=== PATIENT | male | born 1980 | race Hispanic/Latino ===

== ENCOUNTER → 2023-07-03 | Emergency (ER) | payer SELFPAY ==
[~2023-07-03] MED LIST: Magnesium Sulfate 2gm IVPB 2 G/50 ML BAG IV ONE; POTASSIUM CL SA 10 MEQ TAB PO ONE
[2023-07-03 12:13] LABS: Absolute Basophils 0.1 K/uL (0-0.5); Absolute Lymphocytes (CBC) 3.2 K/uL (0.7-4.9); Absolute Monocytes 0.6 K/uL (0.1-1.3); Absolute Neutrophil 10.6 K/uL (1.8-8.0); Basophils % 0.7 % (0-1.3); Eosinophils % 0.2 % (0-4.4); Hematocrit 40.5 % (39.6-49.0); Hemoglobin 13.9 g/dL (13.6-17.9); Lymphocytes % 22.1 % (15.3-44.8); MCH 30.8 pg (27.0-35.0); MCHC 34.4 g/dL (32.0-36.0); MCV 89.6 fL (80-100); MPV 7.5 fL (7.6-11.3); Monocytes % 4.3 % (3.3-12.3); Neutrophils % 72.7 % (41.7-73.7); Nucleated Red Blood Cells % 0.1 % (0-0); Platelets 256 thou/uL (152-406); RBC Red Blood Cell Count 4.52 M/uL (4.33-5.43)
--- NOTE | 2023-07-03 12:30 | RAD REPORT ---
EXAM DESCRIPTION: CT - C Spine Wo Con - 07/03/2023 12:11 pm CLINICAL HISTORY: Radiculopathy COMPARISON: None TECHNIQUE: Computed axial tomography of the cervical spine were obtained with sagittal and coronal r econstruction images generated and reviewed. All CT scans are performed using dose optimization technique as appropriate and may include automated exposure control or mA/KV adjustment according to patient size. FINDINGS: A cervical fracture is not seen. No dislocation. Small right posterior-lateral disc osteophyte complex C3-4 results in mild narrowing of the right brandy ral foramina Spondylosis C4-5 results in mild narrowing left neural foramina Posterior disc osteophyte complex at C5-6 results in mild narrowing of thecal sac and mild to moderat e narrowing of the right and mild narrowing of the left neural foramina Right paracentral disc osteophyte complex C6-7 results in mild narrowing of thecal sac Facet hypertrophy and disc bulge C7-T1 resulting in mild to moderate narrowing the right neural helder tracy Mild central spinal stenosis mid and distal cervical spine Large bilateral thyroid nodules. 3.3 centimeter soft tissue structure abuts the inferior aspect of th e right lobe of the thyroid gland. This could represent a thyroid mass or lymphadenopathy IMPRESSION: A cervical fracture is not seen. Spondylosis and disc osteophyte complex as described above. MRI may be helpful for further evaluation Large bilateral thyroid nodules. 3.3 centimeter soft tissue structure abuts the inferior aspect of th e right lobe of the thyroid gland. Thyroid/neck ultrasound is recommended
--- NOTE | 2023-07-03 12:32 | RAD REPORT ---
EXAM DESCRIPTION: Amrit Single View07/03/2023 12:27 pm CLINICAL HISTORY: Hypertension/radiculopathy COMPARISON: none FINDINGS: The lungs appear clear of acute infiltrate. The heart is normal size IMPRESSION: No acute abnormalities displayed
[2023-07-03 12:33] LABS: Albumin 3.3 g/dL (3.4-5.0); Albumin/Globulin Ratio 0.8 (1.1-1.8); Anion Gap 10.5 mEq/L (5.0-15.0); Bilirubin Direct 0.3 mg/dL (0-0.2); Bilirubin Indirect, Calculated 0.6 mg/dL (0.2-0.8); Bilirubin Total 0.9 mg/dL (0.2-1.0); Globulin 3.9 g/dL (2.3-3.5); Magnesium 1.2 mg/dL (1.6-2.4); Protein, Total 7.2 g/dL (6.4-8.2); Troponin High Sensitivity 5.4 pg/mL (<58.9)
[2023-07-03 12:36] LABS: Potassium 2.5 mEq/L (3.5-5.1)
--- NOTE | 2023-07-03 13:39 | RAD REPORT ---
EXAM DESCRIPTION: US - Thyroid Para Parotid Gland - 07/03/2023 1:07 pm CLINICAL HISTORY: evaluate nodules Neck pain and swelling COMPARISON: C Spine Wo Con dated 07/03/2023 FINDINGS: The right lobe of the thyroid measures 5.3 x 3.7 x 2.9 cm. Circumscribed large nodule measuring 3.3 x 2.7 cm present. Adjacent more heterogenous nodule measuring 3.4 x 2.2 cm is present with solid and c ystic components. The left lobe of the thyroid measures 5.0 x 3.3 x 3.1 cm. Large heterogenous somewhat poorly defined nodule occupying the majority of the gland inferiorly measures at least 4.5 x 3.1 cm in size. Isthmus of the thyroid appears thickened up to 1 cm. IMPRESSION: Enlarged thyroid gland containing multiple large nodules as detailed. Multinodular goite r would be favored.
[2023-07-03 14:47] LABS: Specific Gravity 1.017 (1.005-1.030); Urine Bacteria <20 /HPF (<20); Urine Bilirubin NEGATIVE (Negative); Urine Blood 3+ (OVER) (Negative); Urine Clarity Extremely Turbid (Clear); Urine Color Yellow (Yellow); Urine Crystals Unidentified Few /HPF (None Seen); Urine Culture Reflex Order REFLEXED; Urine Glucose 1+ (Negative); Urine Ketones NEGATIVE (Negative); Urine Micro Reflex YN NO BILL MICROSCOPIC; Urine Mucus Slight /HPF (None Seen); Urine Nitrite NEGATIVE (Negative); Urine Protein 1+ (Negative); Urine RBC >50 /HPF (None Seen); Urine Urobilinogen Normal (Normal); Urine WBC 20-50 /HPF (<5); Urine pH 5.5 (5.0-7.0)
--- NOTE | 2023-07-03 15:05 | EDPHYS ---
Physician Documentation [facility] Name: Warner Dennis Age: 42 yrs Sex: Male : 1980 Arrival Date: 07/03/2023 Time: 11:51 Bed 4 Private MD: ED Physician Alana Albarran HPI: 07/02 12:17 This 42 yrs old Male presents to ER via EMS with complaints of left hand "asleep". sp3 12:18 42-year-old male with history of diabetes and hypertension and kidney stones currently sp3 on Flomax and pain medication due to current symptoms now presents to the ED with chief complaint left upper extremity "[id number]" without loss of motor function. He denies any injury or prior symptoms. He denies any chest pain, shortness of breath, neck pain, back pain, facial pain, nausea, vomiting, diarrhea, syncope, near syncope, rash, known sick contacts, travel history, or any other signs or symptoms on ROS at this time. He also denies prolonged immobilization, prior DVT or PE or any other family history of related illness.. Historical: - Allergies: 12:01 No Known Allergies; ko1 - Home Meds: 12:01 Flomax 0.4 mg Oral capsule [Active]; ko1 - PMHx: 12:01 Diabetes mellitus; Hypertensive disorder; ko1 - Immunization history:: Adult Immunizations unknown. - Social history:: Smoking status: Patient denies any tobacco usage or history of. ROS: 12:20 Constitutional: Negative for fever, chills, and weight loss, Eyes: Negative for injury, sp3 pain, redness, and discharge, ENT: Negative for injury, pain, and discharge, Neck: Negative for injury, pain, and swelling, Cardiovascular: Negative for chest pain, palpitations, and edema, Respiratory: Negative for shortness of breath, cough, wheezing, and pleuritic chest pain, Abdomen/GI: Negative for abdominal pain, nausea, vomiting, diarrhea, and constipation, Back: Negative for injury and pain, Skin: Negative for injury, rash, and discoloration, Psych: Negative for depression, anxiety, suicide ideation, homicidal ideation, and hallucinations, Allergy/Immunology: Negative for hives, rash, and allergies, Endocrine: Negative for neck swelling, polydipsia, polyuria, polyphagia, and marked weight changes, Hematologic/Lymphatic: Negative for swollen nodes, abnormal bleeding, and unusual bruising, 12:20 All other systems are negative, Exam: 12:20 Constitutional: This is a well developed, well nourished patient who is awake, alert, sp3 and in no acute distress. Head/Face: Normocephalic, atraumatic. Eyes: Pupils equal round and reactive to light, extra-ocular motions intact. Lids and lashes normal. Conjunctiva and sclera are non-icteric and not injected. Cornea within normal limits. Periorbital areas with no swelling, redness, or edema. ENT: Nares patent. No nasal discharge, no septal abnormalities noted. External auditory canals are clear. Oropharynx with no redness, swelling, or masses, exudates, or evidence of obstruction, uvula midline. Mucous membranes moist. Neck: Trachea midline, no thyromegaly or masses palpated, and no cervical lymphadenopathy. Supple, full range of motion without nuchal rigidity, or vertebral point tenderness. No Meningismus. Chest/axilla: Normal chest wall appearance and motion. Nontender with no deformity. No lesions are appreciated. Cardiovascular: Regular rate and rhythm with a normal S1 and S2. No gallops, murmurs, or rubs. Normal PMI, no JVD. No pulse deficits. Respiratory: Lungs have equal breath sounds bilaterally, clear to auscultation and percussion. No rales, rhonchi or wheezes noted. No increased work of breathing, no retractions or nasal flaring. Abdomen/GI: Soft, non-tender, with normal bowel sounds. No distension or tympany. No guarding or rebound. No evidence of tenderness throughout. Back: No spinal tenderness. No costovertebral tenderness. Full range of motion. Skin: Warm, dry with normal turgor. Normal color with no rashes, no lesions, and no evidence of cellulitis. Psych: Awake, alert, with orientation to person, place and time. Behavior, mood, and affect are within normal limits. 12:20 Neuro: Subjective [id number] and numbness noted however to point discrimination, motor function and vascular exam are all normal in the left upper extremity. Remainder of neurological exam is normal., 12:29 ECG was reviewed by the Attending Physician. EKG demonstrates normal sinus rhythm at 93 sp3 bpm with normal intervals, normal QRS, leftward axis and nonspecific ST's ST changes without evidence of acute ischemia. Vital Signs: 12:00 BP 134 / 91; Pulse 88; Resp 15; Temp 97; Pulse Ox 98% ; ko1 13:05 BP 151 / 89; Pulse 82; Resp 16; Pulse Ox 99% ; ko1 15:06 BP 148 / 86; Pulse 78; Resp 15; Pulse Ox 99% ; ko1 MDM: 11:59 Patient medically screened. sp3 12:23 Data reviewed: vital signs, nurses notes, lab test result(s), EKG, radiologic studies. sp3 ED course: 42-year-old male with PMH above now with left upper extremity neurological complaints. Differential diagnosis includes cervical radiculopathy, electrolyte abnormality, acute coronary syndrome, musculoskeletal pain/symptoms, among others. Workup will include CT scan of the cervical spine, EKG, chest x-ray, laboratory values including troponin. I am not highly concerned about TAD, PE, pleurisy, pneumonia, pneumothorax, or any other related pathology. Will assess mediastinum and lungs on x-ray as well. Vital signs are normal and patient is in no acute distress. Probable discharge home with follow-up to PCP. Patient is having 0 chest pain, back pain, shortness of breath, neck pain or abdominal pain.. 13:50 ED course: Workup is negative except for probable goiter noted on ultrasound and CT. sp3 Potassium and magnesium are both low and will be replenished. Creatinine at 1.7 which she has known renal insufficiency also now in the setting of kidney stone. Patient saw his PCP yesterday regarding his kidney stone and this is being managed by that person. I have advised him to go back to his PCP with all lab results for follow-up lab values to ensure this is resolving. Patient is already on Flomax and pain medication. Will also check a quick UA before he leaves. Clinically given his results, I do not believe he is having a cardiac presentation.. 15:04 ED course: Electrolytes replenished. UA demonstrates probable UTI for which we will sp3 give antibiotics. Follow back up with PCP for thyroid workup.. 07/02 12:00 Order name: Basic Metabolic Panel; Complete Time: 12:40 sp3 07/02 12:00 Order name: CBC with Diff; Complete Time: 12:34 sp3 07/02 12:00 Order name: LFT's; Complete Time: 12:40 sp3 07/02 12:00 Order name: Magnesium; Complete Time: 12:40 sp3 07/02 12:00 Order name: NT PRO-BNP; Complete Time: 12:40 sp3 07/02 12:00 Order name: Troponin HS; Complete Time: 12:40 sp3 07/02 13:51 Order name: UAM; Complete Time: 14:58 3 07/02 14:50 Order name: Urine Culture EDMS 07/02 12:00 Order name: XRAY Chest (1 view); Complete Time: 12:34 sp3 07/02 12:00 Order name: CT C Spine; Complete Time: 12:34 3 07/02 12:45 Order name: Thyroid Para Parotid Gland; Complete Time: 13:46 EDMS 07/02 12:00 Order name: EKG; Complete Time: 12:00 3 07/02 12:00 Order name: Cardiac monitoring; Complete Time: 12:08 3 07/02 12:00 Order name: EKG - Nurse/Tech; Complete Time: 12:31 3 07/02 12:00 Order name: IV Saline Lock; Complete Time: 12:08 sp3 07/02 12:00 Order name: Labs collected and sent; Complete Time: 12:08 3 07/02 12:00 Order name: O2 Per Protocol; Complete Time: 12:04 sp3 07/02 12:00 Order name: O2 Sat Monitoring; Complete Time: 12:04 sp3 Administered Medications: 13:54 Drug: Potassium Chloride PO 40 mEq PO once Route: PO; ko1 14:55 Follow up: Response: No adverse reaction ko1 13:55 Drug: Magnesium Sulfate IVPB 2 grams IVPB once over 1 hrs Route: IVPB; Infused Over: 1 ko1 hrs; Site: left antecubital; 14:55 Follow up: IV Status: Completed infusion; IV Intake: 50ml ko1 Disposition Summary: 07/03/23 15:05 Discharge Ordered Notes: Location: Home sp3 Condition: Stable sp3 Diagnosis - Left arm paresthesia, hypokalemia, hypomagnesemia, UTI sp3 Followup: sp3 - With: Private Physician - When: Upon discharge from the Emergency Department - Reason: Continuance of care Discharge Instructions: - Discharge Summary Sheet sp3 - Hypomagnesemia sp3 - Urinary Tract Infection, Adult sp3 - Hypokalemia sp3 Forms: - Medication Reconciliation Form sp3 - Thank You Letter sp3 - Antibiotic Education sp3 - Prescription Opioid Use sp3 - Patient Portal Instructions sp3 - Leadership Thank You Letter sp3 Prescriptions: - Cipro 500 mg Oral Tablet - take 1 tablet ORAL route every 12 hours for 7 days; 14 tablet; Refills: 0, sp3 Product Selection Permitted Signatures: Dispatcher [employer] EDMS Alana Albarran MD MD sp3 Cara Dominguez RN RN ko1 Corrections: (The following items were deleted from the chart) 12:25 12:23 ED course: 42-year-old male with PMH above now with left upper extremity sp3 neurological complaints. Differential diagnosis includes cervical radiculopathy, electrolyte abnormality, acute coronary syndrome, musculoskeletal pain/symptoms, among others. Workup will include CT scan of the cervical spine, EKG, chest x-ray, laboratory values including troponin. I am not highly concerned about TAD, PE, pleurisy, pneumonia, pneumothorax, or any other related pathology. Will assess mediastinum and lungs on x-ray as well. Vital signs are normal and patient is in no acute distress. Probable discharge home with follow-up to PCP.. sp3
--- NOTE | 2023-07-03 15:05 | ER ---
Nurse's Notes [facility] Name: Warner Dennis Age: 42 yrs Sex: Male : 1980 Arrival Date: 07/03/2023 Time: 11:51 Bed 4 Private MD: Diagnosis: Left arm paresthesia, hypokalemia, hypomagnesemia, UTI Presentation: 07/02 12:00 Chief complaint: EMS states: patient is having some decreased sensation to the left arm ko1 and hand, started about 6pm yesterday. Coronavirus screen: At this time, the client does not indicate any symptoms associated with coronavirus-19. Ebola Screen: No symptoms or risks identified at this time. Initial Sepsis Screen: Does the patient meet any 2 criteria? No. Patient's initial sepsis screen is negative. Does the patient have a suspected source of infection? No. Patient's initial sepsis screen is negative. Risk Assessment: Do you want to hurt yourself or someone else? Patient reports no desire to harm self or others. Onset of symptoms was July 02, 2023. Care prior to arrival: IV initiated. 20 GA, in the left forearm. 12:00 Method Of Arrival: EMS: [facility] ko1 12:00 Acuity: CAITY 3 ko1 Triage Assessment: 12:01 General: Appears in no apparent distress. comfortable, Behavior is calm, cooperative, ko1 appropriate for age. Pain: Denies pain. Historical: - Allergies: 12:01 No Known Allergies; ko1 - Home Meds: 12:01 Flomax 0.4 mg Oral capsule [Active]; ko1 - PMHx: 12:01 Diabetes mellitus; Hypertensive disorder; ko1 - Immunization history:: Adult Immunizations unknown. - Social history:: Smoking status: Patient denies any tobacco usage or history of. Screenin:09 [facility] ED Fall Risk Assessment (Adult) History of falling in the last 3 months, ko1 including since admission No falls in past 3 months (0 pts) Confusion or Disorientation No (0 pts) Intoxicated or Sedated No (0 pts) Impaired Gait No (0 pts) Mobility Assist Device Used No (0 pt) Altered Elimination No (0 pt) Score/Fall Risk Level 0 - 2 = Low Risk Oriented to surroundings, Maintained a safe environment, Educated pt \T\ family on fall prevention, incl call for assistance when getting out of bed, Assessed \T\ reinforced patient's understanding of fall precautions, Provided non-skid footwear, Hourly rounding (assess needs \T\ fall precautionary measures) done, Used ambulatory aids as needed (educated on \T\ assisted with), Used gait belt as appropriate. Abuse screen: Denies threats or abuse. Denies injuries from another. Nutritional screening: No deficits noted. Tuberculosis screening: No symptoms or risk factors identified. Assessment: 12:09 Neuro: Reports numbness in left arm. Cardiovascular: No deficits noted. Respiratory: No ko1 deficits noted. GI: No deficits noted. : No deficits noted. EENT: No deficits noted. Derm: No deficits noted. Musculoskeletal: No deficits noted. Vital Signs: 12:00 BP 134 / 91; Pulse 88; Resp 15; Temp 97; Pulse Ox 98% ; ko1 13:05 BP 151 / 89; Pulse 82; Resp 16; Pulse Ox 99% ; ko1 15:06 BP 148 / 86; Pulse 78; Resp 15; Pulse Ox 99% ; ko1 ED Course: 11:54 Patient arrived in ED. bd 11:54 Cara Dominguez, WILLIAM is Primary Nurse. ko1 11:56 Alana Albarran MD is Attending Physician. sp3 12:01 Triage completed. ko1 12:01 Arm band placed on right wrist. Patient placed in an exam room, on a stretcher, on ko1 cardiac sonographer, on pulse oximetry, Patient notified of wait time. 12:08 Basic Metabolic Panel Sent. ko1 12:08 CBC with Diff Sent. ko1 12:08 LFT's Sent. ko1 12:08 Magnesium Sent. ko1 12:08 NT PRO-BNP Sent. ko1 12:08 Troponin HS Sent. ko1 12:09 Patient has correct armband on for positive identification. Bed in low position. Call ko1 light in reach. Side rails up X 1. Client placed on continuous cardiac and pulse oximetry monitoring. NIBP monitoring applied. drum plater on. Door closed. Noise minimized. Lights dimmed. Warm blanket given. 12:09 Initial lab(s) drawn, by me, sent to lab. Maintain EMS IV. Dressing intact. Good blood ko1 return noted. Site clean \T\ dry. Gauge \T\ site: 20 L AC. 12:10 CT C Spine In Process Unspecified. EDMS 12:29 XRAY Chest (1 view) In Process Unspecified. EDMS 13:08 Thyroid Para Parotid Gland In Process Unspecified. EDMS 13:08 Provided Education on: na. ko1 13:08 No provider procedures requiring assistance completed. ko1 14:00 Assisted to bathroom. ko1 15:07 IV discontinued, intact, bleeding controlled, No redness/swelling at site. Pressure ko1 dressing applied. Administered Medications: 13:54 Drug: Potassium Chloride PO 40 mEq PO once Route: PO; ko1 14:55 Follow up: Response: No adverse reaction ko1 13:55 Drug: Magnesium Sulfate IVPB 2 grams IVPB once over 1 hrs Route: IVPB; Infused Over: 1 ko1 hrs; Site: left antecubital; 14:55 Follow up: IV Status: Completed infusion; IV Intake: 50ml ko1 Medication: 12:09 VIS not applicable for this client. ko1 Intake: 14:55 IV: 50ml; Total: 50ml. ko1 Outcome: 15:05 Discharge ordered by . sp3 15:13 Discharged to home ambulatory, with family, ko1 15:13 Condition: stable 15:13 Discharge instructions given to patient, family, Instructed on discharge instructions, follow up and referral plans. medication usage, Demonstrated understanding of instructions, follow-up care, medications, Prescriptions given X 1, 15:13 Patient left the ED. ko1 Signatures: Dispatcher [employer] EDMS Eli Owens Setul, MD MD sp3 Cara Dominguez, WILLIAM RN ko1
[2023-07-03 16:47] VITALS: BP 148/86; TEMP 97; O2SAT 99
--- NOTE | 2023-07-03 17:00 | EKG ---
Test Date: 2023-07-03 Test Time: 11:27:21 Electrical Sign Wirer: Ninfa BROWN MEASUREMENT RESULTS: Intervals: Rate: 93 RI: 148 QRSD: 100 QT: 348 QTc: 432 Jay: P: 45 RI: 148 QRS: -22 T: -2 INTERPRETIVE STATEMENTS: Normal sinus rhythm Voltage criteria for left ventricular hypertrophy Abnormal ECG No previous ECG available for comparison Electronically Signed On 07-03-23 16:59:28 CDT by Hong Norris
== END ==
LOC: ER 11:51
DX: E87.6 Hypokalemia (principal); E83.42 Hypomagnesemia; N39.0 Urinary tract infection, site not specified
CPT/HCPCS: 36415; 71045; 72125; 76536; 80048; 80076; 81001; 83735; 83880; 84484; 85025; 87086; 87088; 93005; 96365; 99285; J3475